=== PATIENT | female | born 1955 | race Two or more races ===

== ENCOUNTER → 2016-06-07 | Outpatient (CLI) | payer BC ==
[2016-06-07 11:22] LABS: ALBUMIN 4.3 GM/DL (3.2-5.2); ALBUMIN/GLOBULIN RATIO 1.26 (1.00-1.93); ALKALINE PHOSPHATASE 73 U/L (45-117); ALT/SGPT 22 U/L (12-78); ANION GAP 7 MEQ/L (8-16); AST/SGOT 17 U/L (15-37); BILIRUBIN,TOTAL 0.6 MG/DL (0.2-1.0); BLOOD UREA NITROGEN 17 MG/DL (7-18); CALCIUM LEVEL 10.6 MG/DL (8.8-10.2); CARBON DIOXIDE LEVEL 28 MEQ/L (21-32); CHLORIDE LEVEL 106 MEQ/L (98-107); CHOLESTEROL LEVEL 191 MG/DL (<200); CREATININE FOR GFR 0.73 MG/DL (0.55-1.02); GLOMERULAR FILTRATION RATE > 60.0 (>45); GLUCOSE, FASTING 91 MG/DL (80-110); POTASSIUM SERUM 4.1 MEQ/L (3.5-5.1); SODIUM LEVEL 141 MEQ/L (136-145); TOTAL PROTEIN 7.7 GM/DL (6.4-8.2); TRIGLYCERIDES LEVEL 68 MG/DL (<150)
== END ==
LOC: M WUC 09:29
PROVIDERS: ATTEND Physician Assistant
DX: Z79.899 Other long term (current) drug therapy (principal); Z13.1 Encounter for screening for diabetes mellitus; Z13.220 Encounter for screening for lipoid disorders

== ENCOUNTER → 2016-06-09 | Outpatient (REF) | payer BC ==
[2016-06-09 13:28] LABS: FOLATE > 24.0 NG/ML; VITAMIN B12 LEVEL 578 PG/ML
[2016-06-13 14:11] LABS: FREE KAPPA LIGHT CHAINS SERUM 15.83 mg/L (3.30-19.40); FREE KAPPA LIGHT CHAINS URINE 6.33 mg/L (1.35-24.19); FREE LAMBDA LIGHT CHAINS SERUM 14.73 mg/L (5.71-26.30); FREE LAMBDA LIGHT CHAINS URINE 0.27 mg/L (0.24-6.66); KAPPA/LAMBDA RATIO SERUM 1.07 (0.26-1.65)
== END ==
LOC: M SFHCADAM 10:27
PROVIDERS: ATTEND Physician Assistant
DX: D75.89 Other specified diseases of blood and blood-forming organs (principal); E83.52 Hypercalcemia

== ENCOUNTER → 2019-05-14 | Outpatient (CLI) | payer MEDICARE ==
--- NOTE | 2019-05-14 13:25 | REP ---
LUMBOSACRAL SPINE SERIES: Six views of the lumbosacral spine performed. There is no compression fracture seen. 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 There is mild diffuse spurring. There is mild disc space narrowing at all levels. There is moderate disc space narrowing with subchondral sclerosis at L5-S1. There are mild anterior listhesis of L4 and L5 due to posterior facet arthropathy. Moderate spurring and subchondral sclerosis is seen at the posterior facet joints diffusely. Posterior elements appear intact. The facet arthropathy is most significant at the L3-4, L4-5 and L5-S1 levels. IMPRESSION: Degenerative changes as above. Electronically Signed by Kaushik Pimentel MD 05/14/2019 07:56 P
== END ==
LOC: M WUC 11:39
PROVIDERS: ATTEND Physician Assistant
DX: M54.32 Sciatica, left side (principal)

== ENCOUNTER → 2019-12-12 | Outpatient (CLI) | payer MEDICARE ==
[2019-12-12 16:43] LABS: BLOOD UREA NITROGEN 18 MG/DL (7-18); CREATININE FOR GFR 0.78 MG/DL (0.55-1.30); GLOMERULAR FILTRATION RATE > 60.0 (>45)
== END ==
LOC: M WUC 12:33
PROVIDERS: ATTEND Physician Assistant
DX: M47.26 Other spondylosis with radiculopathy, lumbar region (principal)

== ENCOUNTER → 2020-06-17 | Outpatient (REF) | payer MEDICARE ==
[2020-06-17 17:49] LABS: FREE T4 0.95 NG/DL (0.76-1.46); THYROID STIMULATING HORMONE 0.663 uIU/ML (0.358-3.740)
[2020-06-17 17:51] LABS: PTH INTACT 108.3 PG/ML (18.5-88.0); TOTAL 25(OH) VITAMIN D 55.5 NG/ML (30.0-100.0)
== END ==
LOC: M SFHCADAM 14:06
PROVIDERS: ATTEND Physician Assistant
DX: E21.3 Hyperparathyroidism, unspecified (principal); M16.11 Unilateral primary osteoarthritis, right hip

== ENCOUNTER → 2020-06-17 | Outpatient (CLI) | payer MEDICARE ==
--- NOTE | 2020-06-17 15:32 | REP ---
INDICATION: PRE OP. COMPARISON: None. TECHNIQUE: Upright PA and lateral chest. FINDINGS: The lung benitez are clear. Cardiac size is normal. The damian, mediastinum and skeletal structures are unremarkable. There is slight tenting at the dome of the right hemidiaphragm, likely pleural adhesion. IMPRESSION: There is slight tenting at the dome of the right hemidiaphragm, likely pleural adhesion, otherwise, negative PA and lateral chest. <Electronically signed by Kaushik Renee > 06/17/20 1525
== END ==
LOC: M ADAMS 14:14
PROVIDERS: ATTEND Physician Assistant
DX: Z01.818 Encounter for other preprocedural examination (principal); M16.11 Unilateral primary osteoarthritis, right hip

== ENCOUNTER → 2020-06-17 | Outpatient (REF) | payer MEDICARE ==
[2020-06-17 17:23] LABS: HEMATOCRIT 48.2 % (36.0-47.0); HEMOGLOBIN 15.5 g/dl (12.0-15.5); MEAN CORPUSCULAR HEMOGLOBIN 33.8 pg (27.0-33.0); MEAN CORPUSCULAR HGB CONC 32.2 g/dl (32.0-36.5); MEAN CORPUSCULAR VOLUME 105.2 fl (80.0-96.0); PLATELET COUNT, AUTOMATED 305 10^3/uL (150-450); RED BLOOD COUNT 4.58 10^6/uL (4.00-5.40); WHITE BLOOD COUNT 7.1 10^3/uL (4.0-10.0)
[2020-06-17 17:32] LABS: INR 0.94; PROTHROMBIN TIME 12.7 SECONDS (12.5-14.3)
[2020-06-17 17:54] LABS: ALBUMIN 4.8 GM/DL (3.2-5.2); ALT/SGPT 21 U/L (12-78); BILIRUBIN,TOTAL 0.6 MG/DL (0.2-1.0); BLOOD UREA NITROGEN 18 MG/DL (7-18); CALCIUM LEVEL 11.5 MG/DL (8.8-10.2); CARBON DIOXIDE LEVEL 30 MEQ/L (21-32); CHLORIDE LEVEL 106 MEQ/L (98-107); CREATININE FOR GFR 0.64 MG/DL (0.55-1.30); GLOMERULAR FILTRATION RATE > 60.0 (>45); GLUCOSE, FASTING 97 MG/DL (70-100); POTASSIUM SERUM 4.8 MEQ/L (3.5-5.1); SODIUM LEVEL 141 MEQ/L (136-145); TOTAL PROTEIN 8.3 GM/DL (6.4-8.2)
[2020-06-17 17:56] LABS: ERYTHROCYTE SEDIMENTATION RATE 4 mm/hr (0-30)
== END ==
LOC: M LABDRWAD 16:36
PROVIDERS: ATTEND Orthopaedic Surgery
DX: M16.11 Unilateral primary osteoarthritis, right hip (principal); E21.3 Hyperparathyroidism, unspecified

== ENCOUNTER 2022-12-22 08:11 | Day surgery (SDC) | payer MEDICARE ==
[~2022-12-22] VITALS: Ht 172.7 cm; Wt 67.9 kg
[~2022-12-22 08:11] MED LIST: BSS IRRIG/VANCO(10MG)/TOBRA(5MG)/EPINEPH(1:1000-0.5CC)500ML BAG-ORONLY IR ONE; CEFUROXIME 1MG/0.1ML INTRACAMERAL INJ As Ordered ONE; CRAN450T4 PO; CYCLOPENTOLATE 1% OPHTH SOLN 2ML BTL OD SCH; GARL3CAP4 PO; HAIR1CHW2 PO; LIDOCAINE 1% SDV 5ML VIAL As Ordered ONE; LIDOCAINE 3.5 % 1ML OPHTH TOPICAL GEL OU ONE; MIDAZOLAM INJ 2MG/2ML VIAL As Ordered ONE; OFLOXACIN 0.3 % (OCUFLOX) OPTH SOL 5ML OD ONE; PHENYLEPHRINE 10% OPHTH SOL 5ML OD PRN; PHENYLEPHRINE 2.5% OPHTH SOL 2ML OD SCH; RA T500C2 PO; TROPICAMIDE 1% OPHTH SOLN 15ML OD SCH; VITA250T4 PO; VITA400T26 PO; fentaNYL 100 MCG/2 ML INJECTION As Ordered ONE
[2022-12-22] MEDS ORDERED: VITACAP8 PO (09:03)
[2022-12-22 10:27] VITALS: BP 112/79; TEMP 97.4; O2SAT 94
== END 2022-12-22 10:47 | disposition home or self-care (01) ==
LOC: M SDC 08:11
PROVIDERS: ATTEND Ophthalmology
DX: H26.9 Unspecified cataract (principal)
CPT/HCPCS: 66984; J0697; J2250; J3010; V2632

== ENCOUNTER 2023-01-05 11:15 | Day surgery (SDC) | payer MEDICARE ==
[~2023-01-05] VITALS: Ht 174 cm; Wt 68.0 kg
[~2023-01-05 11:15] MED LIST changes: +ACETYLCHOLINE OPHTH SOLN 1% 2ML (MIOCHOL-E) As Ordered ONE; -CYCLOPENTOLATE 1% OPHTH SOLN 2ML BTL OD SCH; +CYCLOPENTOLATE 1% OPHTH SOLN 2ML BTL OS SCH; -MIDAZOLAM INJ 2MG/2ML VIAL As Ordered ONE; -OFLOXACIN 0.3 % (OCUFLOX) OPTH SOL 5ML OD ONE; +OFLOXACIN 0.3 % (OCUFLOX) OPTH SOL 5ML OS ONE; -PHENYLEPHRINE 10% OPHTH SOL 5ML OD PRN; +PHENYLEPHRINE 10% OPHTH SOL 5ML OS PRN; -PHENYLEPHRINE 2.5% OPHTH SOL 2ML OD SCH; +PHENYLEPHRINE 2.5% OPHTH SOL 2ML OS SCH; +PROVISC 10 MG/ML 0.85ML SYRINGE As Ordered ONE; -TROPICAMIDE 1% OPHTH SOLN 15ML OD SCH; +TROPICAMIDE 1% OPHTH SOLN 15ML OS SCH; +VITACAP8 PO; -fentaNYL 100 MCG/2 ML INJECTION As Ordered ONE
[2023-01-05] MEDS ORDERED: MIDAZOLAM INJ 2MG/2ML VIAL As Ordered ONE (12:25)
[2023-01-05] MEDS ORDERED: fentaNYL 100 MCG/2 ML INJECTION As Ordered ONE (12:25)
[2023-01-05 12:52] VITALS: BP 124/89; TEMP 98; O2SAT 97
== END 2023-01-05 13:20 | disposition home or self-care (01) ==
LOC: M SDC 11:15
PROVIDERS: ATTEND Ophthalmology
DX: H25.12 Age-related nuclear cataract, left eye (principal)
CPT/HCPCS: 66984; J0697; J2250; J3010; V2632

== ENCOUNTER → 2024-12-07 | Outpatient (REF) | payer MEDICARE ==
[~2024-12-07] MED LIST changes: -ACETYLCHOLINE OPHTH SOLN 1% 2ML (MIOCHOL-E) As Ordered ONE; -BSS IRRIG/VANCO(10MG)/TOBRA(5MG)/EPINEPH(1:1000-0.5CC)500ML BAG-ORONLY IR ONE; -CEFUROXIME 1MG/0.1ML INTRACAMERAL INJ As Ordered ONE; -CYCLOPENTOLATE 1% OPHTH SOLN 2ML BTL OS SCH; -LIDOCAINE 1% SDV 5ML VIAL As Ordered ONE; -LIDOCAINE 3.5 % 1ML OPHTH TOPICAL GEL OU ONE; -OFLOXACIN 0.3 % (OCUFLOX) OPTH SOL 5ML OS ONE; -PHENYLEPHRINE 10% OPHTH SOL 5ML OS PRN; -PHENYLEPHRINE 2.5% OPHTH SOL 2ML OS SCH; -PROVISC 10 MG/ML 0.85ML SYRINGE As Ordered ONE; -RA T500C2 PO; -TROPICAMIDE 1% OPHTH SOLN 15ML OS SCH; +TURM500C10 PO; +VITA250T27 PO; -VITA250T4 PO
[2024-12-07 18:22] LABS: APPEARANCE, URINE CLOUDY (CLEAR); BACTERIA, URINE AUTO 1+ (NEGATIVE); BILIRUBIN, URINE AUTO NEGATIVE (NEGATIVE); BLOOD, URINE BLOOD NEGATIVE (NEGATIVE); GLUCOSE, URINE (UA) AUTO NEGATIVE (NEGATIVE); KETONE, URINE AUTO NEGATIVE (NEGATIVE); LEUKOCYTE ESTERASE, URINE AUTO 3+ (NEGATIVE); NITRITE, URINE AUTO POSITIVE (NEGATIVE); PROTEIN, URINE AUTO NEGATIVE (NEGATIVE); RBC, URINE AUTO 2 /HPF (0-3); SPECIFIC GRAVITY URINE AUTO 1.008 (1.002-1.035); SQUAMOUS EPITHELIAL CELL UR AU 0 /HPF (0-6); UROBILINOGEN, URINE AUTO 0.2 mg/dL (0.0-2.0); WBC, URINE AUTO 7 /HPF (0-3)
== END ==
LOC: M LAB REF 18:04
DX: N39.0 Urinary tract infection, site not specified (principal)